=== PATIENT | female | born 2000 | race Caucasian/White ===

== ENCOUNTER 2019-01-23 08:20 | Outpatient (RCR) | payer BC, SELFPAY ==
[2019-01-20 17:38] LABS: Hematocrit 33.3 % (37.0-47.0); Hemoglobin 10.9 g/dL (12.0-15.0)
[2019-01-20 17:56] LABS: Glucose 1 Hour PP 50gm Dose 98 mg/dL
[2019-01-20 18:53] LABS: HIV 1/2 Ab P24 Ag Result Negative (Negative)
[2019-01-23] MEDS: RHO(D) IMMUNE GLOBULIN 300 MCG SYRINGE IM (08:09)
== END 2019-04-20 23:59 | disposition home or self-care (01) ==
LOC: ANHLAB 08:20
PROVIDERS: Visit Provider Obstetrics & Gynecology
DX: Z36.89 Encounter for other specified antenatal screening (principal); Z29.13 Encounter for prophylactic Rho(D) immune globulin; O36.0920 Maternal care for other rhesus isoimmunization, second trimester, not applicable or unspecified; Z3A.00 Weeks of gestation of pregnancy not specified
CPT/HCPCS: 36415; 36430; 81220; 81329; 82947; 85014; 85018; 86703; 90384; 96372; G0432; J2790

== ENCOUNTER 2019-12-02 15:14 | Emergency (ER) | payer BC, SELFPAY ==
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
[2019-12-02 15:47] VITALS: BP 135/79; PULSE 103; RESP 16; TEMP 36.3; O2SAT 100
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
[2019-12-02 17:07] VITALS: PULSE 98; RESP 12
== END 2019-12-02 17:07 | disposition home or self-care (01) ==
PROVIDERS: Emergency Provider Emergency Medicine; PCP Family Medicine
DX: S00.33XA Contusion of nose, initial encounter (principal); W51.XXXA Accidental striking against or bumped into by another person, initial encounter
CPT/HCPCS: 70160; 99283